=== PATIENT | female | born 1975 | race Caucasian/White ===

== ENCOUNTER 2023-04-14 08:33 | Emergency (ER) | payer OTHER, SELFPAY ==
[2023-04-14 08:43] VITALS: BP 105/84; PULSE 75; RESP 16; TEMP 37.2; O2SAT 99
--- NOTE | 2023-04-14 09:02 | ED.LOWEXIN ---
HPI - Extremity Injury (Lower) General Chief Complaint: Extremity Injury, Lower Stated Complaint: Right Leg/Hip Pain Time Seen by Provider: 04/14/23 09:00 Source: patient Mode of arrival: ambulatory Limitations: no limitations History of Present Illness HPI Narrative: 48-year-old female presented for complaint of right lower extremity pain for 2 days. She states today is improved from yesterday. Currently rates pain 4/10. Endorses the pain radiates from the right lower back down the back of the right leg to the foot. Reports occasional aches to the front of the lower leg. Pain is worse when attempting to bear weight such as pulling on pants. Pain started the day after twisting while pulling a hospital bed. Denies decreased ROM to the RLE, numbness, tingling, weakness of the extremity. She has applied ice, taken ibuprofen and muscle relaxer. Related Data Home Medications Medication Instructions Recorded Confirmed levothyroxine 150 mcg tablet 150 mcg PO DAILY 07/21/19 04/14/23 buspirone 10 mg tablet mg 04/14/23 Allergies Allergy/AdvReac Type Severity Reaction Status Date / Time No Known Drug Allergies Allergy Unknown Unknown Verified 04/14/23 08:45 Review of Systems Review of Systems: CONSTITUTIONAL: Denies body aches, fever, chills EYES: Denies visual changes ENT: Denies rhinorrhea, congestion CARDIOVASCULAR: Denies chest pain, palpitations, or edema. RESPIRATORY: Denies cough or dyspnea. GASTROINTESTINAL: Denies abdominal pain, nausea, vomiting, or diarrhea. SKIN: Denies rash, itching, or wounds. MUSCULOSKELETAL: Denies back pain, joint pain, or myalgia. NEUROLOGIC: Denies headache, numbness, tingling, or weakness. PSYCH: Denies depression or anxiety. All systems reviewed & are unremarkable except as noted in HPI and below PMFSH Past Medical History Medical History (Updated 04/14/23 @ 09:16 by Chelsie Last APRN) No pertinent past medical history Comments At time of signature, I have reviewed and agree with nursing past medical, surgical, social and family history unless otherwise noted. Please see nursing chart for further information. There is no relevant family history pertinent to the presenting complaint Exam Narrative: GENERAL: Well-appearing, well-nourished, and in no acute distress. HEAD: Normocephalic, atraumatic. CHEST: Speaks in full sentences. No respiratory distress. HEART: Regular rate and rhythm. Normal and equal peripheral pulses. EXTREMITIES: RLE has normal strength and sensation, normal range of motion with flexion at hip and knee. Pain illicited when standing on the right foot. No ecchymosis, No point tenderness to low back, SI joint, or hip. No open wounds, or obvious deformity; alignment normal, pulse palpable and equal bilaterally, skin warm, dry, pink. Capillary refill less than 3 seconds. Steady gait. SKIN: Warm, dry, no rash. NEURO: Alert and oriented x3. PSYCH: Normal mood and affect Course Course Emergency Course: Patient is aware of diagnosis, understands and agrees to treatment plan. Anticipatory guidance given. Patient agrees to follow-up as directed and is aware of reasons to seek care at the emergency department. Portions of this record may have been created with voice recognition software Level of Care: Express Care Visit Vital Signs Vital signs: Vital Signs Temperature 98.9 F 04/14/23 08:43 Pulse Rate 75 04/14/23 08:43 Respiratory Rate 16 04/14/23 08:43 Blood Pressure 105/84 04/14/23 08:43 Pulse Oximetry 99 04/14/23 08:43 Oxygen Delivery Room Air 04/14/23 08:43 Temperature 98.9 F 04/14/23 08:43 Pulse Rate 75 04/14/23 08:43 Respiratory Rate 16 04/14/23 08:43 Blood Pressure 105/84 04/14/23 08:43 Pulse Oximetry 99 04/14/23 08:43 Oxygen Delivery Room Air 04/14/23 08:43 Reviewed MDM - Extremity Injury (Lower) MDM Narrative Medical decision making narrative: Discussed physical exam findin
== END 2023-04-14 09:20 | disposition home or self-care (01) ==
PROVIDERS: Emergency Provider Nurse Practitioner Family; PCP Nurse Practitioner Family
DX: M54.16 Radiculopathy, lumbar region (principal); E03.9 Hypothyroidism, unspecified
CPT/HCPCS: 99213; G0463